=== PATIENT | female | born 1980 | race Caucasian/White ===

== ENCOUNTER 2017-06-08 14:49 | Emergency (ER) | payer OTHER ==
[2017-06-08 14:58] VITALS: BP 90/53; PULSE 70; TEMP 98.6; BMI 19.3
--- NOTE | 2017-06-08 15:08 | PDOC ---
History of Present Illness - General History Source: Patient (The patient is a 36 year old female, with no significant past medical history, who presents to the ED via walk in complaining of mild hematuria for approx. 2 days. The patient reports symptoms of dysuria and increased urinary frequency. ) Exam Limitations: No Limitations - History of Present Illness Timing/Duration: other (2 days ) Severity: mild, moderate Associated Symptoms: reports: other (Hematuria. Increased urinary frequency. ). denies: denies symptoms, chest pain, cough, diaphoresis, fever/chills, headaches, loss of appetite, malaise, nausea/vomiting, rash, seizure, shortness of breath, syncope, weakness <Som Regalado - Last Filed: 06/08/17 16:54> <Darrell Whitaker - Last Filed: 06/08/17 17:09> - General Chief Complaint: Urinary Problem Stated Complaint: burning on urination Time Seen by Provider: 06/08/17 15:07 Past History - Reproductive History LMP Normal: Yes (LMP 06/01/2017) Is Patient Now?: No <Som Regalado - Last Filed: 06/08/17 16:54> - Past Medical History COPD: No Other medical history: denies - Suicide/Smoking/Psychosocial Hx Smoking History: Never smoked Cigars Per Day: 0 Hx Alcohol Use: No Drug/Substance Use Hx: No Substance Use Type: None <Darrell Whitaker - Last Filed: 06/08/17 17:09> - Past Medical History Allergies/Adverse Reactions: Allergies Allergy/AdvReac Type Severity Reaction Status Date / Time No Known Allergies Allergy Verified 06/08/17 14:50 Home Medications: Ambulatory Orders Phenazopyridine HCl [Pyridium] 100 mg PO TID PRN 2 Days #6 tablet 06/08/17 Sulfamethoxazole/Trimethoprim [Bactrim Ds -] 1 tab PO BID #10 tablet 06/08/17 Review of Systems - Review of Systems Able to Perform ROS?: Yes Constitutional: No: Chills, Diaphoresis, Fever, Loss of Appetite, Weakness HEENTM: No: Nose Congestion Respiratory: No: Cough, Shortness of Breath, Productive cough Cardiac (ROS): No: Chest Pain, Lightheadedness, Palpitations ABD/GI: No: Abdominal Distended, Abd. Pain w/ defecation, Constipated, Diarrhea , Nausea, Vomiting : Yes: Burning, Dysuria, Frequency, Hematuria. No: Discharge, Flank Pain, Incontinence Musculoskeletal: No: Back Pain, Joint Pain, Muscle Pain, Muscle Weakness Neurological: Yes: Headache. No: Weakness, Dizziness Endocrine: No: Unexplained Weight Gain, Unexplained Weight Loss <Som Regalado - Last Filed: 06/08/17 16:54> *Physical Exam - Vital Signs Last Vital Signs Temp Pulse Resp BP Pulse Ox 98.6 F 70 16 90/53 100 06/08/17 14:50 06/08/17 14:50 06/08/17 14:50 06/08/17 14:50 06/08/17 14:50 - Physical Exam General Appearance: Yes: Appropriately Dressed. No: Apparent Distress HEENT: positive: MOISES, Normal ENT Inspection, Normal Voice, Symmetrical, TMs Normal, Pharynx Normal Neck: positive: Supple Respiratory/Chest: positive: Lungs Clear, Normal Breath Sounds Cardiovascular: positive: Regular Rhythm, Regular Rate Gastrointestinal/Abdominal: positive: Normal Bowel Sounds, Soft, Tenderness, Other (+Suprapubic tenderness. ) Musculoskeletal: positive: Normal Inspection Extremity: positive: Normal Inspection, Normal Range of Motion. negative: Tender, Calf Tenderness Integumentary: positive: Normal Color, Dry, Warm Neurologic: positive: supervising editor trailer II-XII NML intact, Fully Oriented, Alert, Normal Mood/ Affect, Normal Response, Motor Strength 5/5 <Som Regalado - Last Filed: 06/08/17 16:54> - Vital Signs Last Vital Signs Temp Pulse Resp BP Pulse Ox 98.6 F 70 16 90/53 100 06/08/17 14:50 06/08/17 14:50 06/08/17 14:50 06/08/17 14:50 06/08/17 14:50 <Darrell Whitaker S - Last Filed: 06/08/17 17:09> ED Treatment Course - LABORATORY CBC & Chemistry Diagram: 06/08/17 15:50 06/08/17 15:50 - ADDITIONAL ORDERS Additional order review: Laboratory Results 06/08/17 14:58 Urine Color Yellow Urine Appearance Cloudy Urine pH 5.5 Ur Specific [place] 1.015 Urine Protein 2+ H Urine Glucose (UA) Negative Urine Ketones Trace Urine Blood 3+ H Urine Nitrite Negative Urine Bilirubin Negative Urine Urobilinogen 0.2 Ur Leukocyte Esterase 2+ H Urine HCG, Qual Negative <Som Regalado - Last Filed: 06/08/17 16:54> - LABORATORY CBC & Chemistry Diagram: 06/08/17 15:50 06/08/17 15:50 <Darrell Whitaker - Last Filed: 06/08/17 17:09> *DC/Admit/Observation/Transfer - Attestations Scribe Attestion: 06/08/17 15:58 Documentation prepared by Som Regalado, acting as biomedical specialist for Darrell Whitaker MD. <Som Regalado - Last Filed: 06/08/17 16:54> - Discharge Dispostion Admit: No <Darrell Whitaker - Last Filed: 06/08/17 17:09> Diagnosis at time of Disposition: Hemorrhagic cystitis - Discharge Dispostion Disposition: HOME Condition at time of disposition: Improved - Prescriptions Prescriptions: Sulfamethoxazole/Trimethoprim [Bactrim Ds -] 1 tab PO BID #10 tablet - Patient Instructions Printed Discharge Instructions: DI for Urinary Tract Infection (UTI) Additional Instructions: You have a urinary tract infection that is causing your urinary tract to bleed. Please take your antibiotics as prescribed and return if your symptoms aren't getting better or if you get worsening symptoms despite treatment. Please return if you have any back pains, fevers, or have nausea/ vomiting that keeps you from keeping down your medications.
[2017-06-08 15:31] LABS: PH,URINE 5.5 (4.5-8); URINE APPEARANCE Cloudy; URINE BILIRUBIN Negative (NEGATIVE); URINE GLUCOSE (UA) Negative (NEGATIVE); URINE KETONE Trace (NEGATIVE); URINE NITRITE Negative (NEGATIVE); URINE UROBILINOGEN 0.2 (0.2-1.0)
[2017-06-08 15:36] LABS: URINE BLOOD 3+ (NEGATIVE); URINE COLOR YELLOW; URINE PROTEIN 2+ (NEGATIVE)
[2017-06-08 15:37] LABS: HCG,QUALITATIVE URINE NEGATIVE
[2017-06-08 16:09] LABS: BASO % 0.3 % (0-2.0); EOS % 0.9 % (0-4.5); HEMATOCRIT 38.3 % (32.4-45.2); LYMPH % 14.5 % (8-40); MCH 30.3 pg (25.7-33.7); MCHC 33.9 g/dl (32.0-36.0); MEAN CELL VOLUME 89.2 fl (80-96); MEAN PLT VOLUME 7.8 fl (7.5-11.1); MONO % 4.5 % (3.8-10.2); NEUT % 79.8 % (42.8-82.8); PLATELET COUNT 259 K/MM3 (134-434); RDW 12.3 % (11.6-15.6); WHITE BLOOD COUNT 8.5 K/mm3 (4.0-10.8)
[2017-06-08 16:21] LABS: ALBUMIN 4.1 g/dl (3.5-5.0); ALK PHOS 51 U/L (32-92); ANION GAP 7 (8-16); BLOOD UREA NITROGEN 18 mg/dl (7-18); CALCIUM 9.2 mg/dl (8.4-10.2); CHLORIDE 101 mmol/L (98-107); CO2 25 mmol/L (22-28); CREATININE 0.7 mg/dl (0.6-1.3); GLUCOSE,RANDOM 80 mg/dl (74-106); POTASSIUM 3.6 mmol/L (3.5-5.1); SGOT/AST 19 U/L (10-42); SGPT/ALT 15 U/L (10-40); SODIUM 133 mmol/L (136-145); TOT PROT 7.1 g/dl (6.4-8.3)
[2017-06-08] MEDS ORDERED: PHENAZOPYRIDINE HCL 100 MG TABLET (FP) ONE (16:37)
[2017-06-08] MEDS ORDERED: SULFAMETHOXAZOLE/TRIMETHOPRIM 800MG/160MG D.S. TABLET ONE (16:37)
[2017-06-08] MEDS ORDERED: SULFAMETHOXAZOLE/TRIMETHOPRIM 800MG/160MG D.S. TABLET PO ONE (16:39)
[2017-06-08] MEDS ORDERED: PHENAZOPYRIDINE HCL 100 MG TABLET (FP) PO ONE (16:40)
[2017-06-08 17:59] LABS: EPI CELLS FEW /HPF; URINE RBC MANY /hpf (0-3); URINE WBC >100 (0-5)
[2017-06-08 18:00] LABS: URINE BACTERIA MANY /hpf (NEGATIVE)
== END 2017-06-08 17:12 | disposition home or self-care (01) ==
LOC: FER 14:49
DX: N30.91 Cystitis, unspecified with hematuria (principal)
CPT/HCPCS: 36415; 80053; 81003; 81015; 84703; 85025; 87086; 99282-25

== ENCOUNTER 2021-11-12 20:44 | Emergency (ER) | payer OTHER ==
[2021-11-12 20:49] VITALS: BP 99/71; PULSE 79; TEMP 97.8; BMI 20.5
== END 2021-11-12 21:45 | disposition home or self-care (01) ==
LOC: FER 20:44
DX: R53.83 Other fatigue (principal); R51.9 Headache, unspecified
CPT/HCPCS: 99281-25